=== PATIENT | female | born 1955 | race Caucasian/White ===

== ENCOUNTER → 2018-09-18 | Outpatient (CLI) | payer BC ==
--- NOTE | 2018-09-18 11:25 | KCIC ---
EXAM: Dual energy x-ray absorptiometry (DEXA). HISTORY: Postmenopausal female presents for osteoporosis screening. COMPARISON: None. TECHNIQUE: Dual energy x-ray absorptiometry of the lumbar spine and left hip was performed. Calculation of bone mineral density based on standard deviations above or below the expected young adult normal value (T-score) was completed. FINDINGS: The average bone mineral density in the 1st through 4th lumbar vertebrae is 0.924 g/cmxcm, corresponding with a T-score of -1.1. The average total bone mineral density in the left hip is 0.872 g/cmxcm, corresponding with a T-score of -0.6. IMPRESSION: 1. Osteopenia measured at the lumbar spine. 2. Normal bone mineral density measured at the left hip. Note: Definitions established by the World Health Organization: 1. Normal: T-score is -1.0 or above. 2. Osteopenia: T-score is between -1.0 and -2.5 . 3. Osteoporosis: T-score is -2.5 or below. Electronically signed by: Muriel Chadwick MD (09/18/2018 11:22 AM) [id number]
--- NOTE | 2018-09-22 14:32 | KCIC ---
Bilateral digital screening mammograms with 3-D tomosynthesis: Reason for examination: Routine screening. Comparison is made to previous study dated 10/31/2011. Bilateral mammograms in CC and oblique projections were obtained with 2-D imaging and 3-D tomosynthesis imaging on a Siemens Inspiration unit and reviewed on the workstation. Interpretation was made with the benefit of CAD. The skin and nipples show no abnormalities. No abnormal axillary lymph nodes are seen. The breast parenchyma shows scattered fatty and fibroglandular density. (Breast density: Category B.) There are small benign-appearing nodular densities seen bilaterally with the majority of these probably represent intramammary lymph nodes. There are no dominant masses, suspicious calcifications or architectural distortion. Impression: No evidence of malignancy. Recommend routine screening. BI-RAD Category 2: Benign. "Our facility is accredited by the [employer] Mammography Program." This patient's information has been entered into a reminder system for the patient to be notified with the results of her examination and a target date for the next mammogram. Electronically signed by: Sandhya Chand MD (09/22/2018 2:29 PM) [id number]
== END | disposition home or self-care (01) ==
LOC: KCIC DEXA 10:20
PROVIDERS: ATTEND Family Medicine
DX: Z12.31 Encounter for screening mammogram for malignant neoplasm of breast (principal); Z13.820 Encounter for screening for osteoporosis; M85.88 Other specified disorders of bone density and structure, other site; Z78.0 Asymptomatic menopausal state
CPT/HCPCS: 77063; 77067; 77080

== ENCOUNTER → 2018-10-01 | Outpatient (CLI) | payer BC ==
--- NOTE | 2018-10-01 15:28 | KCIC ---
Left hand radiograph 10/01/2018 12:00 AM INDICATION: Right first digit pain for one week radiating to the palm. No known injury. COMPARISON: None available. TECHNIQUE: 3 views the left hand are provided. FINDINGS: There is no acute fracture or dislocation. Bone mineralization is within normal limits. Mild joint space narrowing involving the first carpometacarpal joint. Regional soft tissues are within normal limits. There is no soft tissue gas or osseous erosion. IMPRESSION: No acute fracture or dislocation. 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 Electronically signed by: Kelsie Sparks MD (10/01/2018 3:25 PM) [email or web address]
== END | disposition home or self-care (01) ==
LOC: KCIC 14:59
PROVIDERS: ATTEND Nurse Practitioner Family
DX: M19.042 Primary osteoarthritis, left hand (principal)
CPT/HCPCS: 73130

== ENCOUNTER → 2019-02-19 | Outpatient (CLI) | payer BC ==
--- NOTE | 2019-02-19 10:38 | KCIC ---
FOOT RIGHT 3V 02/19/2019 12:00 AM INDICATION: Right foot pain for a month COMPARISON: None available. TECHNIQUE: 3 views the right foot are provided. FINDINGS: There is no acute fracture or dislocation. Bone mineralization is within normal limits. Joint spaces are maintained. Dorsal soft tissue swelling. Posterior and plantar calcaneal enthesophytes are identified involving the foot. There is no soft tissue gas or osseous erosion. IMPRESSION: No acute fracture or dislocation. There is dorsal soft tissue swelling. If symptoms persist, recommend repeat evaluation in 7-10 days. Electronically signed by: Electronically signed by: Kelsie Sparks MD (02/19/2019 10:35 AM) [id number]
== END | disposition home or self-care (01) ==
LOC: KCIC 08:26
PROVIDERS: ATTEND Nurse Practitioner Family
DX: M79.89 Other specified soft tissue disorders (principal); M25.871 Other specified joint disorders, right ankle and foot
CPT/HCPCS: 73630